=== PATIENT | female | born 1980 | race Caucasian/White ===

== ENCOUNTER 2017-09-18 09:11 | Outpatient (CLI) | payer BC ==
--- NOTE | 2017-09-18 11:53 | RAD ---
LEFT SHOULDER THREE VIEWS: History: 36-year-old female with left shoulder pain. IMPRESSION: No fracture, dislocation, or other significant acute osseous abnormality. POS: [email or web address]
== END 2017-09-18 09:12 | disposition home or self-care (01) ==
LOC: RAD-FRANK 09:11
PROVIDERS: ATTEND Nurse Practitioner Family
DX: R20.8 Other disturbances of skin sensation (principal)

== ENCOUNTER 2022-07-19 08:01 | Outpatient (CLI) | payer BC | END 2022-07-19 08:02 | disposition home or self-care (01) | LOC: TBSIIMAG 08:01 | PROVIDERS: ATTEND Orthopaedic Surgery | DX: S83.412A Sprain of medial collateral ligament of left knee, initial encounter (principal); M23.92 Unspecified internal derangement of left knee; M25.562 Pain in left knee ==